=== PATIENT | female | born 1975 | race Caucasian/White ===

== ENCOUNTER 2020-08-28 16:25 | Emergency (ER) | payer BC ==
[~2020-08-28] VITALS: Ht 157.5 cm; Wt 93.9 kg
[2020-08-28 16:31] VITALS: BP_SYST 144
[2020-08-28] MEDS ORDERED: LIDOCAINE 1% 10 MG/ML, 50 ML MDV INJ ONE (16:45)
[2020-08-28] MEDS ORDERED: LIDOCAINE 1%, 20 ML MDV 20 ML ONE (16:51)
[2020-08-28] MEDS ORDERED: VANCOMYCIN HCL 1,000 MG in NS 250 ML IV ONE (17:00)
[2020-08-28] MEDS ORDERED: KETOROLAC TROMETHAMINE 30 MG VIAL IVP ONE (17:15)
[2020-08-28] MEDS ORDERED: VANCOMYCIN HCL 1000 MG/VIAL IV ONE (17:21)
[2020-08-28] MEDS ORDERED: CEPH250C PO (17:29)
[2020-08-28] MEDS ORDERED: NAPR-1172 PO (17:29)
[2020-08-28 18:38] VITALS: BP_SYST 144
== END 2020-08-28 18:36 | disposition home or self-care (01) ==
LOC: SED 16:25
DX: L03.311 Cellulitis of abdominal wall (principal); F17.200 Nicotine dependence, unspecified, uncomplicated; Z76.0 Encounter for issue of repeat prescription
CPT/HCPCS: 10060; 36415; 87040; 96365; 96375; 99284; J1885; J2001; J3370

== ENCOUNTER 2020-08-31 07:05 | Emergency (ER) | payer BC ==
[~2020-08-31] VITALS: Ht 157.5 cm; Wt 95.3 kg
[~2020-08-31 07:05] MED LIST: CEPH250C PO; NAPR-1172 PO
[2020-08-31 07:15] VITALS: BP_SYST 117
[2020-08-31 08:50] VITALS: BP_SYST 107
== END 2020-08-31 08:50 | disposition home or self-care (01) ==
LOC: SED 07:05
DX: Z48.00 Encounter for change or removal of nonsurgical wound dressing (principal); Z79.899 Other long term (current) drug therapy
CPT/HCPCS: 99282

== ENCOUNTER 2020-09-04 20:59 | Emergency (ER) | payer BC ==
[~2020-09-04] VITALS: Ht 157.5 cm; Wt 95.3 kg
[2020-09-04 21:21] VITALS: BP_SYST 161
[2020-09-05] MEDS ORDERED: CLINDAMYCIN PHOSPHATE 300 MG/2 ML VIAL IM ONE
[2020-09-05] MEDS ORDERED: CLIN300C12 PO (00:12)
[2020-09-05] MEDS ORDERED: cefTRIAXone 1 GM in LIDOCAINE 1%, 20 ML MDV 2.1 ML IM ONE (00:15)
[2020-09-05] MEDS ORDERED: cefTRIAXone 1 GM VIAL ONE (00:18)
[2020-09-05 00:20] VITALS: BP_SYST 161
== END 2020-09-05 00:20 | disposition home or self-care (01) ==
LOC: SED 20:59
DX: L03.312 Cellulitis of back [any part except buttock and flank] (principal)
CPT/HCPCS: 87070; 87075; 96372; 99283; J0696; J3490

== ENCOUNTER 2020-09-11 12:45 | Emergency (ER) | payer BC ==
[~2020-09-11] VITALS: Ht 157.5 cm; Wt 95.3 kg
[~2020-09-11 12:45] MED LIST changes: +CLIN300C12 PO
[2020-09-11 12:55] VITALS: BP_SYST 149
[2020-09-11 13:29] VITALS: BP_SYST 137
== END 2020-09-11 13:31 | disposition home or self-care (01) ==
LOC: SED 12:45
DX: Z48.00 Encounter for change or removal of nonsurgical wound dressing (principal)
CPT/HCPCS: 99281

== ENCOUNTER 2020-09-24 15:05 | Emergency (ER) | payer BC ==
[~2020-09-24] VITALS: Ht 157.5 cm; Wt 95.3 kg
[2020-09-24 15:05] VITALS: BP_SYST 144
[2020-09-24 15:54] VITALS: BP_SYST 144
== END 2020-09-24 15:52 | disposition home or self-care (01) ==
LOC: SED 15:05
DX: Z48.00 Encounter for change or removal of nonsurgical wound dressing (principal); Z79.899 Other long term (current) drug therapy
CPT/HCPCS: 99282

== ENCOUNTER 2020-10-06 13:38 | Emergency (ER) | payer BC ==
[~2020-10-06] VITALS: Ht 157.5 cm; Wt 95.3 kg
[2020-10-06 13:41] VITALS: BP_SYST 133
[2020-10-06] MEDS ORDERED: BACITRACIN 1 GM OINT TP ONE ×2 (14:36→14:45)
[2020-10-06 14:45] VITALS: BP_SYST 133
== END 2020-10-06 14:45 | disposition home or self-care (01) ==
LOC: SED 13:38
DX: Z48.00 Encounter for change or removal of nonsurgical wound dressing (principal)
CPT/HCPCS: 99282

== ENCOUNTER 2023-08-17 13:21 | Emergency (ER) | payer BC ==
[~2023-08-17] VITALS: Ht 157.5 cm; Wt 93.0 kg
[~2023-08-17 13:21] MED LIST changes: +CLIN-142 PO; -CLIN300C12 PO
[2023-08-17 13:30] VITALS: BP_SYST 186; PULSE 92; RESP 18; TEMP 98.3; O2SAT 96
[2023-08-17 14:04] VITALS: BP_SYST 131; PULSE 74; RESP 15; TEMP 97.5; O2SAT 98
[2023-08-17] MEDS ORDERED: METH-634 PO (14:48)
[2023-08-17] MEDS ORDERED: IBUP-1969 PO (14:48)
[2023-08-17] MEDS: KETOROLAC TROMETHAMINE 60 MG/2 ML VIAL IM ONE (14:57)
== END 2023-08-17 15:09 | disposition home or self-care (01) ==
LOC: SED 13:21
DX: M54.6 Pain in thoracic spine (principal); M25.511 Pain in right shoulder; M25.512 Pain in left shoulder; Z79.899 Other long term (current) drug therapy
CPT/HCPCS: 99283; 96374; 93005; 81025; J1885